=== PATIENT | female | born 1970 | race Caucasian/White ===

== ENCOUNTER 2016-11-09 08:21 | Emergency (ER) | payer SELFPAY | END 2016-11-09 09:08 | disposition home or self-care (01) | LOC: FER 08:21 | DX: J41.1 Mucopurulent chronic bronchitis (principal); F17.210 Nicotine dependence, cigarettes, uncomplicated; Z88.0 Allergy status to penicillin | CPT/HCPCS: 99283 ==

== ENCOUNTER 2016-12-01 18:28 | Emergency (ER) | payer SELFPAY | END 2016-12-01 22:19 | disposition home or self-care (01) | LOC: FER 18:28 | DX: R09.81 Nasal congestion (principal); F17.210 Nicotine dependence, cigarettes, uncomplicated; E78.5 Hyperlipidemia, unspecified | CPT/HCPCS: 99283 ==